=== PATIENT | female | born 2000 | race Caucasian/White ===

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

== ENCOUNTER 2019-04-12 14:53 | Emergency (ER) | payer OTHER ==
[2019-04-12 15:00] VITALS: BP 119/61; PULSE 78; TEMP 97.6; BMI 21.0
--- NOTE | 2019-04-12 16:04 | PDOC ---
History of Present Illness - General Chief Complaint: Pain Stated Complaint: CHEST PAIN Time Seen by Provider: 04/12/19 15:06 History Source: Patient Exam Limitations: No Limitations - History of Present Illness Initial Comments: 04/12/19 15:56 HISTORY OF PRESENT ILLNESS: 18-year-old woman who presents to the emergency department for evaluation of left-sided chest pain which is been intermittent over the past 30 days and constant since waking up at approximately 5 AM. She noted the pain is under her left breast radiating to the mid axillary region and then extending up into the neck. She describes the pain as a pressure squeezing sensation and worsens when she takes a deep breath. She denies any oral contraceptive use, prolonged immobility, fevers, chills, coughing, dizziness. No recent travel or sick contacts. PAST MEDICAL HISTORY: Denies past medical history SURGICAL HISTORY: Denies ALLERGIES: No known drug allergies REVIEW OF SYSTEMS General/Constitutional: Denies fever or chills. Denies weakness, weight change. HEENT: Denies change in vision. Denies ear pain or discharge. Denies sore throat. Cardiovascular: see HPI Respiratory: Denies cough, wheezing, or hemoptysis. Gastrointestinal: Denies nausea, vomiting, diarrhea or constipation. Denies rectal bleeding. Genitourinary: Denies dysuria, frequency, or change in urination. Musculoskeletal: Denies joint or muscle swelling or pain. Denies neck or back pain. Skin and breasts: Denies rash or easy bruising. Neurologic: Denies headache, vertigo, loss of consciousness, or loss of sensation. Psychiatric: Denies depression or anxiety. Endocrine: Denies increased thirst. Denies abnormal weight change. Hematologic/Lymphatic: Denies anemia, easy bleeding, or history of blood clots. Allergic/Immunologic: Denies hives or skin allergy. Denies latex allergy. PHYSICAL EXAM General Appearance: Well-appearing, appropriately dressed. No apparent distress , no intoxication. HEENT: EOMI, PERRLA, normal ENT inspection, normal voice, TMs normal, pharynx normal. No conjunctival pallor. No photophobia, scleral icterus. Neck: Supple. Trachea midline. No tenderness, rigidity, carotid bruit, stridor , lymphadenopathy, or thyromegaly. Respiratory/Chest: Lungs CTAB. No shortness of breath, respiratory distress, accessory muscle use. No crackles, rales, rhonchi, stridor, wheezing, dullness. Left side of the chest tender over the fifth and sixth ribs under the left breast extending to the mid axillary region. No palpable deformity, crepitus or step-off is noted. No subcutaneous emphysema is present. No flail chest is seen. Cardiovascular: RRR. S1, S2. No JVD, murmur, bradycardia, tachycardia. Vascular Pulses: Dorsalis-Pedis (R): 2+, Dorsalis-Pedis (L): 2+ Gastrointestinal/Abdominal: Normal bowel sounds. Abdomen soft, non-distended. No tenderness or rebound tenderness. No organomegaly, pulsatile mass, guarding, hernia, hepatomegaly, splenomegaly. Lymphatic: No adenopathy, tenderness. Neurologic: mixer machine feeder II-XII intact. Fully oriented, alert. Appropriate mood/affect. Motor strength 5/5. No appreciable EOM palsy, facial droop or sensory deficit. Past History - Past Medical History Allergies/Adverse Reactions: Allergies Allergy/AdvReac Type Severity Reaction Status Date / Time No Known Allergies Allergy Verified 04/12/19 15:00 Home Medications: Ambulatory Orders NK [No Known Home Medication] 04/12/19 Asthma: No Cancer: No Cardiac Disorders: No COPD: No Diabetes: No HTN: No Seizures: No Thyroid Disease: No - Psycho Social/Smoking Cessation Hx Smoking History: Never smoked Have you smoked in the past 12 months: No Hx Alcohol Use: No Drug/Substance Use Hx: No Hx Substance Use Treatment: No *Physical Exam - Vital Signs Last Vital Signs Temp Pulse Resp BP Pulse Ox 97.6 F 78 18 119/61 99 04/12/19 14:58 04/12/19 14:58 04/12/19 14:58 04/12/19 14:58 04/12/19 14:58 Heart Score/ECG Review - History History: Slightly suspicious - Electrocardiogram EKG: Non specific repolarization disturbance - Age Age: </= 45 - Risk Factors Based on the list above the patient has:: No risk factors known - Troponin Troponin: </= normal limit - Score Heart Score - Total: 1 ED Treatment Course - LABORATORY CBC & Chemistry Diagram: 04/12/19 16:30 04/12/19 16:30 - ADDITIONAL ORDERS Additional order review: Laboratory Results 04/12/19 04/12/19 16:30 16:30 D-Dimer 243 Sodium 137 Potassium 4.3 Chloride 104 Carbon Dioxide 26 Anion Gap 7 L BUN 17.8 Creatinine 0.6 Est GFR (CKD-EPI)AfAm 153.15 Est GFR (CKD-EPI)NonAf 132.14 Random Glucose 93 Calcium 10.0 Total Bilirubin 0.1 L AST 24 ALT 56 Alkaline Phosphatase 95 Creatine Kinase 151 Creatine Kinase Index 0.7 CK-MB (CK-2) 1.1 Troponin I < 0.02 Total Protein 8.5 H Albumin 4.8 04/12/19 16:30 RBC 4.69 MCV 80.9 MCHC 33.1 RDW 16.7 H MPV 8.8 Neutrophils % 63.6 Lymphocytes % 27.6 D Monocytes % 5.9 Eosinophils % 1.6 D Basophils % 1.3 D - RADIOLOGY Radiology Studies Ordered: Category Date Time Status CHEST PA & LAT [RAD] Stat Radiology 04/12/19 15:55 Taken - Medications Given in the ED: ED Medications Discontinued Medications Generic Name Dose Route Start Last Admin Trade Name Freq PRN Reason Stop Dose Admin Acetaminophen 975 mg 04/12/19 17:48 04/12/19 17:53 Tylenol - PO 04/12/19 17:49 975 mg ONCE ONE Administration Medical Decision Making - Medical Decision Making 04/12/19 15:59 A/P: 18-year-old woman with left-sided chest pressure radiating to the mid axillary ribs and left neck for 1 month worse since 5 AM Tenderness present over the sixth and seventh rib extending from underneath the left breast to the mid axillary space. No bony deformity, crepitus or step-off is present. No flail chest is seen. No subcutaneous emphysema is noted. Cardiac exam is unremarkable. Exam is consistent with musculoskeletal pain but cannot rule out cardiac or pulmonary etiology. As pulmonary embolism is highest on the differential I will get a d-dimer to rule out PE. EKG: Sinus rhythm with rate of 72. Normal intervals with a QTC of 435 ms. T wave inversions present in V2 and V3. No ST elevations or depressions are noted. CBC, CMP, cardiac profile, d-dimer Chest x-ray Urinalysis Reassess 04/12/19 16:41 Chest x-ray as read by me: Angle sharp. Cardiac silhouette is within normal limits. Lung houser clear without infiltrate or consolidation. No obvious fractures of the ribs. 04/12/19 18:22 Laboratory Tests 04/12/19 04/12/19 04/12/19 16:30 16:30 16:30 WBC 7.9 RBC 4.69 Hgb 12.5 Hct 37.9 D MCV 80.9 MCH 26.8 D MCHC 33.1 RDW 16.7 H Plt Count 306 D MPV 8.8 Absolute Neuts (auto) 5.0 Neutrophils % 63.6 Lymphocytes % 27.6 D Monocytes % 5.9 Eosinophils % 1.6 D Basophils % 1.3 D Nucleated RBC % 0 D-Dimer 243 Sodium 137 Potassium 4.3 Chloride 104 Carbon Dioxide 26 Anion Gap 7 L BUN 17.8 Creatinine 0.6 Est GFR (CKD-EPI)AfAm 153.15 Est GFR (CKD-EPI)NonAf 132.14 Random Glucose 93 Calcium 10.0 Total Bilirubin 0.1 L AST 24 ALT 56 Alkaline Phosphatase 95 Creatine Kinase 151 Creatine Kinase Index 0.7 CK-MB (CK-2) 1.1 Troponin I < 0.02 Total Protein 8.5 H Albumin 4.8 Patient does have flipped T waves in V2 and V3 initial troponin is negative. As patient has been having pain for greater than 4 hours an initial negative troponin is reassuring. Additionally patient's age puts her less likely for ACS. Patient's d-dimer is 243 and as patient was low risk for PE but as it was high on the differential no further testing is needed. I will discharge the patient home and provide the [place] [facility] at [facility] for patient to follow-up with primary care. I discussed the physical exam findings, ancillary test results and final diagnoses with the patient. I answered all of the patient's questions. The patient was satisfied with the care received and felt comfortable with the discharge plan and treatment plan. The patient will call their primary care physician within 24 hours to arrange follow-up and will return to the Emergency Department with any new, persistent or worsening symptoms. Discharge - Discharge Information Problems reviewed: Yes Clinical Impression/Diagnosis: Musculoskeletal chest pain Condition: Fair Disposition: HOME - Admission No - Follow up/Referral Referrals: [facility] [place] [Provider Group] - Patient Discharge Instructions Additional Instructions: Take Tylenol or Motrin as needed for the pain. Follow nurse monitoring's instructions for appropriate dosage. You do not need a prescription for these medications. You have been given a referral for primary doctor. Call to schedule appointment for reevaluation as well as continuing care of your potential future chronic medical problems. Return to the emergency department for any new or worsening symptoms. Thank you very much for choosing us to provide your emergent healthcare needs. - Post Discharge Activity
[2019-04-12 16:38] LABS: BASO % 1.3 % (0-2.0); EOS % 1.6 % (0-4.5); HEMATOCRIT 37.9 % (32.4-45.2); HEMOGLOBIN 12.5 GM/dL (10.7-15.3); LYMPH % 27.6 % (8-40); MCH 26.8 pg (25.7-33.7); MCHC 33.1 g/dl (32.0-36.0); MEAN CELL VOLUME 80.9 fl (80-96); MEAN PLT VOLUME 8.8 fl (7.5-11.1); MONO % 5.9 % (3.8-10.2); NEUT % 63.6 % (42.8-82.8); PLATELET COUNT 306 K/MM3 (134-434); RBC 4.69 M/mm3 (3.60-5.2); RDW 16.7 % (11.6-15.6); WHITE BLOOD COUNT 7.9 K/mm3 (4.0-10.0)
[2019-04-12 17:19] LABS: ALBUMIN 4.8 g/dl (3.4-5.0); ALK PHOS 95 U/L (45-117); ANION GAP 7 MMOL/L (8-16); BILIRUBIN,TOTAL 0.1 mg/dL (0.2-1); BLOOD UREA NITROGEN 17.8 mg/dL (7-18); CHLORIDE 104 mmol/L (98-107); CO2 26 mmol/L (21-32); CREATININE 0.6 mg/dL (0.55-1.3); GLUCOSE,RANDOM 93 mg/dL (74-106); POTASSIUM 4.3 mmol/L (3.5-5.1); SGOT/AST 24 U/L (15-37); SGPT/ALT 56 U/L (13-61); SODIUM 137 mmol/L (136-145); TOT PROT 8.5 g/dl (6.4-8.2)
[2019-04-12] MEDS ORDERED: ACETAMINOPHEN 500 MG TABLET (FP) PO ONE (17:48)
--- NOTE | 2019-04-13 09:19 | EKG ---
Test Reason : Blood Pressure : / mmHG Vent. Rate : 072 BPM Atrial Rate : 072 BPM P-R Int : 132 ms QRS Dur : 082 ms QT Int : 398 ms P-R-T Axes : -10 089 082 degrees QTc Int : 435 ms NORMAL SINUS RHYTHM T WAVE ABNORMALITY, CONSIDER ANTERIOR ISCHEMIA ABNORMAL ECG NO PREVIOUS ECGS AVAILABLE Confirmed by Noreen Dyer ([id number]) on 04/13/2019 9:18:44 AM Referred By: Confirmed By:Noreen Dyer
== END 2019-04-12 18:36 | disposition home or self-care (01) ==
LOC: JERFT 14:53
DX: R07.89 Other chest pain (principal)
CPT/HCPCS: 36415; 71046-TC-FY; 80053; 82550; 82553; 84484; 85025; 85379; 93005; 93010; 99285-25

== ENCOUNTER 2021-01-02 21:51 | Emergency (ER) | payer OTHER ==
[2021-01-02 21:59] VITALS: BP 106/71; PULSE 74; TEMP 98; BMI 22.6
[2021-01-02] MEDS ORDERED: METHOCARBAMOL 500 MG TABLET PO ONE (22:18)
[2021-01-02] MEDS ORDERED: METHOCARBAMOL 500 MG TABLET ONE (22:25)
== END 2021-01-02 22:30 | disposition home or self-care (01) ==
LOC: JERFT 21:51 → JER 21:51 → JERFT 22:30
DX: M43.6 Torticollis (principal)
CPT/HCPCS: 99283-25

== ENCOUNTER 2022-02-21 22:22 | Emergency (ER) | payer OTHER ==
[2022-02-21 22:28] VITALS: BP 125/69; PULSE 78; RESP 18; TEMP 98.1; BMI 21.9
[2022-02-21] MEDS ORDERED: DIPHTH,PERTUSS(ACELL),TET 0.5 ML DISP.SYRIN IM ONE ×2 (22:53→22:54)
== END 2022-02-21 22:58 | disposition home or self-care (01) ==
LOC: JERFT 22:22
PROC: 0HQGXZZ Repair Left Hand Skin, External Approach (ICD-10-PCS; principal; 2022-02-21)
PROC: 3E0234Z Introduction of Serum, Toxoid and Vaccine into Muscle, Percutaneous Approach (ICD-10-PCS; 2022-02-21)
DX: S61.412A Laceration without foreign body of left hand, initial encounter (principal); W26.0XXA Contact with knife, initial encounter
CPT/HCPCS: 12001-25; 90471; 90715; 99282-25

== ENCOUNTER 2023-02-13 16:48 | Emergency (ER) | payer OTHER ==
[2023-02-13 16:54] VITALS: BMI 22.4
[2023-02-13 17:57] VITALS: BP 107/63; PULSE 111; RESP 18; TEMP 98.3
[2023-02-13] MEDS ORDERED: ONDANSETRON 4 MG TABLET PO ONE (18:00)
[2023-02-13] MEDS ORDERED: ACETAMINOPHEN 500 MG TABLET (FP) PO ONE (18:00)
== END 2023-02-13 18:45 | disposition home or self-care (01) ==
LOC: JER 16:48
DX: O26.893 Other specified pregnancy related conditions, third trimester (principal); R51.9 Headache, unspecified; R11.0 Nausea; R68.83 Chills (without fever); O21.9 Vomiting of pregnancy, unspecified; Z3A.28 28 weeks gestation of pregnancy
CPT/HCPCS: 99283-25

== ENCOUNTER 2023-05-03 01:05 | Inpatient (IN) | payer OTHER ==
[2023-05-03] MEDS: OXYTOCIN 20 UNITS in 0.9% NS 20 UNIT/1,000 ML INFUS.BAG IV SCH (01:26)
[2023-05-03] MEDS ORDERED: BISACODYL 10 MG SUPP.RECT RC PRN (01:37)
[2023-05-03] MEDS ORDERED: METHYLERGONOVINE MALEATE 0.2 MG/1 ML AMP IM PRN (01:37)
[2023-05-03] MEDS ORDERED: WITCH HAZEL 50% (TUCKS) 40 PAD/JAR PAD TP PRN (01:37)
[2023-05-03] MEDS ORDERED: BENZOCAINE 20% 57 GM BOTTLE TP PRN (01:37)
[2023-05-03] MEDS ORDERED: BENZOCAINE 28 GM HEMORRHOIDAL OINTMENT TP PRN (01:37)
[2023-05-03] MEDS ORDERED: oxyCODONE HCL 5 MG TABLET PO PRN (01:37)
[2023-05-03 01:52] LABS: BASO % 0.4 % (0-2.0); EOS % 0.5 % (0-4.5); HEMATOCRIT 32.1 % (32.4-45.2); HEMOGLOBIN 10.5 GM/dL (10.7-15.3); LYMPH % 9.6 % (8-40); MCH 26.1 pg (25.7-33.7); MCHC 32.7 g/dl (32.0-36.0); MEAN CELL VOLUME 79.7 fl (80-96); MEAN PLT VOLUME 9.8 fl (7.5-11.1); MONO % 7.4 % (3.8-10.2); NEUT % 82.1 % (42.8-82.8); PLATELET COUNT 207 10^3/uL (134-434); RBC 4.03 M/mm3 (3.60-5.2); RDW 16.3 % (11.6-15.6); WHITE BLOOD COUNT 16.3 K/mm3 (4.0-10.0)
[2023-05-03 02:03] LABS: INR 0.98 (0.83-1.09); PROTHROMBIN TIME (PATIENT) 11.4 SEC (9.7-13.0)
[2023-05-03 02:06] LABS: ACTIVATED PTT 25.4 SECONDS (25.2-36.5)
[2023-05-03 02:16] LABS: POTASSIUM 3.8 mmol/L (3.5-5.1)
[2023-05-03 02:17] LABS: CALCIUM 8.4 mg/dL (8.5-10.1)
[2023-05-03 02:20] VITALS: BMI 24.1
[2023-05-03 02:21] LABS: CREATININE 0.4 mg/dL (0.55-1.3)
[2023-05-03] MEDS: IBUPROFEN 600 MG TABLET (FP) PO PRN (09:22)
[2023-05-04 08:13] LABS: BASO % 0.7 % (0-2.0); EOS % 2.1 % (0-4.5); HEMATOCRIT 26.3 % (32.4-45.2); HEMOGLOBIN 8.6 GM/dL (10.7-15.3); LYMPH % 19.9 % (8-40); MCH 26.4 pg (25.7-33.7); MCHC 32.9 g/dl (32.0-36.0); MEAN CELL VOLUME 80.3 fl (80-96); MEAN PLT VOLUME 10.1 fl (7.5-11.1); MONO % 7.2 % (3.8-10.2); NEUT % 70.1 % (42.8-82.8); PLATELET COUNT 174 10^3/uL (134-434); RBC 3.27 M/mm3 (3.60-5.2); RDW 16.4 % (11.6-15.6); WHITE BLOOD COUNT 10.5 K/mm3 (4.0-10.0)
[2023-05-04] MEDS: ACETAMINOPHEN 325 MG TABLET (FP) PO PRN (09:09)
[2023-05-04] MEDS: SENNOSIDES/DOCUSATE COMBO (SENNA PLUS) TABLET (UD) PO PRN (20:37)
[2023-05-04 20:50] VITALS: PULSE 99
[2023-05-05 09:17] VITALS: BP 102/56; RESP 18; TEMP 98.1
== END 2023-05-05 13:40 | disposition home or self-care (01) | DRG 560 ==
LOC: JLDR 01:05 → J3W 04:08
PROVIDERS: ADMIT Obstetrics & Gynecology; ATTEND Obstetrics & Gynecology
PROC: 10E0XZZ Delivery of Products of Conception, External Approach (ICD-10-PCS; principal; 2023-05-03)
DX: O73.1 Retained portions of placenta and membranes, without hemorrhage (principal); Z3A.40 40 weeks gestation of pregnancy; Z37.0 Single live birth
CPT/HCPCS: 36415; 80048; 85025; 85610; 85730; 86780; 86850; 86900; 86901